=== PATIENT | female | born 1990 | race Caucasian/White ===

== ENCOUNTER 2017-01-19 13:00 | Outpatient (CLI) | payer OTHER ==
[2016-07-09 09:07] VITALS: BMI 46.4
[~2017-01-19 13:00] MED LIST: HYDROCODON-ACE1 EAC7 PO; HYDROCODONE-APA1 TAB PO; KLONOPIN1 MG PO; VALIUM5 MG PO
== END 2017-01-19 23:59 | disposition home or self-care (01) ==
LOC: D.MRI 13:00
DX: S83.271A Complex tear of lateral meniscus, current injury, right knee, initial encounter (principal); X58.XXXA Exposure to other specified factors, initial encounter; Y93.89 Activity, other specified; Y92.89 Other specified places as the place of occurrence of the external cause

== ENCOUNTER 2017-02-16 10:30 | Emergency (ER) | payer OTHER ==
[2016-07-09 09:07] VITALS: BMI 46.4
== END 2017-02-16 12:20 | disposition home or self-care (01) ==
LOC: D.ER 10:30
DX: M25.512 Pain in left shoulder (principal)

== ENCOUNTER 2017-02-20 12:41 | Emergency (ER) | payer OTHER ==
[2016-07-09 09:07] VITALS: BMI 46.4
[2017-02-20 13:40] LABS: BASOPHILS 0.2 % (0-2); EOSINOPHILS 3.4 % (0-7); HEMATOCRIT 45.5 % (36.0-48.0); HEMOGLOBIN 14.9 g/dL (12-16); IMMATURE GRANULOCYTES 0.3 % (0-5); LYMPHOCYTES 24.5 % (15-50); MCH 30.2 pg (26.0-34.0); MCHC 32.7 g/dL (31.0-37.0); MCV 92.1 fL (80.0-100.0); MEAN PLATELET VOLUME 10.2 fL (7.4-10.4); MONOCYTES 5.5 % (2-11); NEUTROPHILS 66.1 % (40-80); PLATELET COUNT 256 10x3/uL (130-400); RBC 4.94 10x6/uL (4.00-5.40); RDW 12.9 % (11.5-14.5); WBC 10.3 10x3/uL (4.8-10.8)
[2017-02-20 13:41] LABS: APPEARANCE HAZY (CLEAR); BACTERIA MODERATE /hpf (NONE SEEN); BILIRUBIN NEGATIVE (NEGATIVE); COLOR YELLOW (YELLOW); GLUCOSE NEGATIVE (NEGATIVE); KETONE NEGATIVE (NEGATIVE); LEUKOCYTE ESTERASE 1+ (NEGATIVE); MUCUS <1+ /lpf (NONE SEEN); NITRITE NEGATIVE (NEGATIVE); PROTEIN NEGATIVE (NEGATIVE); SPECIFIC GRAVITY 1.015 (1.005-1.020); UROBILINOGEN NORMAL (NORMAL); WHITE CELLS - URINE 25-50 /hpf (0-5)
[2017-02-20 14:13] LABS: ALBUMIN 3.9 g/dL (3.4-5.0); ALKALINE PHOSPHATASE 85 U/L (46-116); ALT (SGPT) 29 U/L (10-68); BILIRUBIN - TOTAL 0.53 mg/dL (0.2-1.3); CALC OSMOLALITY 275 mosm/kg (275-300); CALCIUM 9.3 mg/dL (8.5-10.1); CARBON DIOXIDE 26.6 mmol/L (21.0-32.0); CHLORIDE - SERUM 103 mmol/L (98-107); CREATININE - SERUM 0.8 mg/dL (0.6-1.3); GLUCOSE 91 mg/dL (74-106); POTASSIUM - SERUM 3.9 mmol/L (3.5-5.1); PROTEIN - SERUM 8.2 g/dL (6.4-8.2); SODIUM 139 mmol/L (136-145); UREA NITROGEN 8 mg/dL (7-18); eGFR NON AFRICAN AMERICAN 90 mL/min (90-120)
== END 2017-02-20 15:05 | disposition home or self-care (01) ==
LOC: D.ER 12:41
PROVIDERS: Nurse Practitioner Family
DX: N39.0 Urinary tract infection, site not specified (principal); M54.5 Low back pain; F17.200 Nicotine dependence, unspecified, uncomplicated

== ENCOUNTER 2017-10-15 19:27 | Emergency (ER) | payer MEDICAID | END 2017-10-15 22:35 | disposition home or self-care (01) | LOC: D.ER 19:27 | DX: M54.30 Sciatica, unspecified side (principal); S39.012A Strain of muscle, fascia and tendon of lower back, initial encounter; X58.XXXA Exposure to other specified factors, initial encounter; Y93.89 Activity, other specified; Y92.89 Other specified places as the place of occurrence of the external cause; F17.200 Nicotine dependence, unspecified, uncomplicated ==

== ENCOUNTER 2017-10-26 12:29 | Emergency (ER) | payer MEDICAID ==
[2016-07-09 09:07] VITALS: BMI 46.4
== END 2017-10-26 14:18 | disposition home or self-care (01) ==
LOC: D.ER 12:29
DX: M54.16 Radiculopathy, lumbar region (principal); F17.200 Nicotine dependence, unspecified, uncomplicated

== ENCOUNTER 2018-02-16 14:24 | Emergency (ER) | payer MEDICAID ==
[~2018-02-16] VITALS: Ht 167.6 cm; Wt 127.3 kg
[2018-02-16 14:29] VITALS: Ht 167.6 cm; Wt 127.3 kg
[2018-02-16 15:22] LABS: BASOPHILS 0.3 % (0-2); EOSINOPHILS 2.9 % (0-7); HEMATOCRIT 43.3 % (36.0-48.0); HEMOGLOBIN 14.4 g/dL (12-16); IMMATURE GRANULOCYTES 0.2 % (0-5); LYMPHOCYTES 25.3 % (15-50); MCH 30.3 pg (26.0-34.0); MCHC 33.3 g/dL (31.0-37.0); MCV 91.2 fL (80.0-100.0); MEAN PLATELET VOLUME 9.9 fL (7.4-10.4); MONOCYTES 5.8 % (2-11); NEUTROPHILS 65.5 % (40-80); PLATELET COUNT 258 10x3/uL (130-400); RBC 4.75 10x6/uL (4.00-5.40); WBC 10.3 10x3/uL (4.8-10.8)
[2018-02-16 15:33] LABS: HCG URINE NEGATIVE (NEGATIVE)
[2018-02-16 15:39] LABS: APPEARANCE HAZY (CLEAR); BILIRUBIN NEGATIVE (NEGATIVE); COLOR YELLOW (YELLOW); GLUCOSE NEGATIVE (NEGATIVE); KETONE NEGATIVE (NEGATIVE); NITRITE NEGATIVE (NEGATIVE); PROTEIN NEGATIVE (NEGATIVE); UROBILINOGEN NORMAL (NORMAL)
[2018-02-16 15:44] LABS: BACTERIA MANY /hpf (NONE SEEN); EPITHELIAL CELLS 0-5 /hpf (0-5); MUCUS <1+ /lpf (NONE SEEN); RED CELLS - URINE >50 /hpf (0-5); WHITE CELLS - URINE 0-5 /hpf (0-5)
[2018-02-16 15:57] LABS: ALBUMIN 3.4 g/dL (3.4-5.0); ALKALINE PHOSPHATASE 64 U/L (46-116); ALT (SGPT) 43 U/L (10-68); CALC OSMOLALITY 281 mosm/kg (275-300); CALCIUM 9.2 mg/dL (8.5-10.1); CARBON DIOXIDE 29.4 mmol/L (21.0-32.0); CHLORIDE - SERUM 106 mmol/L (98-107); CREATININE - SERUM 0.7 mg/dL (0.6-1.3); GLUCOSE 116 mg/dL (74-106); PROTEIN - SERUM 7.5 g/dL (6.4-8.2); SODIUM 142 mmol/L (136-145); UREA NITROGEN 6 mg/dL (7-18); eGFR NON AFRICAN AMERICAN > 90 mL/min (90-120)
[2018-02-16 16:44] LABS: HCG - QUANTITATIVE (MATERNAL) 0 mIU/mL; LIPASE 136 U/L (73-393)
[2018-02-16] MEDS ORDERED: ZOFRAN ODT4 MG/UDTAB PO (17:35)
[2018-02-16] MEDS ORDERED: MACRODANTIN100 MG PO (17:35)
[2018-02-16 18:03] VITALS: BP 132/80
== END 2018-02-16 18:03 | disposition home or self-care (01) ==
LOC: D.ER 14:24
PROVIDERS: Family Medicine
DX: N39.0 Urinary tract infection, site not specified (principal); R11.2 Nausea with vomiting, unspecified; N93.9 Abnormal uterine and vaginal bleeding, unspecified; F17.200 Nicotine dependence, unspecified, uncomplicated

== ENCOUNTER 2018-03-18 20:10 | Emergency (ER) | payer MEDICAID ==
[~2018-03-18] VITALS: Ht 167.6 cm; Wt 135.5 kg
[~2018-03-18 20:10] MED LIST changes: +MACRODANTIN100 MG PO; +ZOFRAN ODT4 MG/UDTAB PO
[2018-03-18 20:15] VITALS: Ht 167.6 cm; Wt 135.5 kg
[2018-03-18] MEDS ORDERED: ROBAXIN-750750 MG PO (21:24)
[2018-03-18] MEDS ORDERED: VOLTAREN75 MG PO (21:24)
[2018-03-18 22:36] VITALS: BP 127/83
[2018-03-19] MEDS ORDERED: TORADOL10 MG PO (19:13)
== END 2018-03-18 22:34 | disposition home or self-care (01) ==
LOC: D.ER 20:10
DX: G43.909 Migraine, unspecified, not intractable, without status migrainosus (principal); M54.5 Low back pain; F17.200 Nicotine dependence, unspecified, uncomplicated

== ENCOUNTER 2018-03-19 15:23 | Emergency (ER) | payer MEDICAID ==
[~2018-03-19] VITALS: Ht 167.6 cm; Wt 138.2 kg
[~2018-03-19 15:23] MED LIST changes: +ROBAXIN-750750 MG PO; +VOLTAREN75 MG PO
[2018-03-19 15:54] VITALS: Ht 167.6 cm; Wt 138.2 kg
[2018-03-19 17:00] LABS: APPEARANCE CLOUDY (CLEAR); COLOR YELLOW (YELLOW)
[2018-03-19 17:00] LABS: BASOPHILS 0.2 % (0-2); EOSINOPHILS 3.9 % (0-7); HEMATOCRIT 45.5 % (36.0-48.0); HEMOGLOBIN 15.1 g/dL (12-16); IMMATURE GRANULOCYTES 0.4 % (0-5); LYMPHOCYTES 21.8 % (15-50); MCH 30.1 pg (26.0-34.0); MCHC 33.2 g/dL (31.0-37.0); MCV 90.8 fL (80.0-100.0); NEUTROPHILS 65.7 % (40-80); PLATELET COUNT 240 10x3/uL (130-400); RBC 5.01 10x6/uL (4.00-5.40); RDW 13.3 % (11.5-14.5); WBC 13.7 10x3/uL (4.8-10.8)
[2018-03-19 17:01] LABS: BILIRUBIN NEGATIVE (NEGATIVE); GLUCOSE NEGATIVE (NEGATIVE); KETONE NEGATIVE (NEGATIVE); NITRITE NEGATIVE (NEGATIVE); PROTEIN NEGATIVE (NEGATIVE); UROBILINOGEN NORMAL (NORMAL)
[2018-03-19 17:04] LABS: BACTERIA MANY /hpf (NONE SEEN); RED CELLS - URINE 0-5 /hpf (0-5); WHITE CELLS - URINE 0-5 /hpf (0-5)
[2018-03-19 17:49] LABS: ALBUMIN 3.3 g/dL (3.4-5.0); ALKALINE PHOSPHATASE 67 U/L (46-116); ALT (SGPT) 46 U/L (10-68); CALC OSMOLALITY 277 mosm/kg (275-300); CALCIUM 8.4 mg/dL (8.5-10.1); CARBON DIOXIDE 27.5 mmol/L (21.0-32.0); CHLORIDE - SERUM 105 mmol/L (98-107); CREATININE - SERUM 0.6 mg/dL (0.6-1.3); GLUCOSE 116 mg/dL (74-106); POTASSIUM - SERUM 3.4 mmol/L (3.5-5.1); PROTEIN - SERUM 7.2 g/dL (6.4-8.2); SODIUM 140 mmol/L (136-145); UREA NITROGEN 6 mg/dL (7-18); eGFR NON AFRICAN AMERICAN > 90 mL/min (90-120)
[2018-03-19] MEDS ORDERED: TORADOL10 MG PO (19:13)
[2018-03-19 19:17] VITALS: BP 137/85
[2018-03-19 19:50] LABS: HCG SERUM NEGATIVE (NEGATIVE)
[2018-03-23 21:08] LABS: CHLAMYDIA TRACHOMATIS, NAA Negative (Negative)
== END 2018-03-19 20:06 | disposition home or self-care (01) ==
LOC: D.ER 15:23
PROVIDERS: Family Medicine
DX: R10.30 Lower abdominal pain, unspecified (principal); R30.0 Dysuria; R10.2 Pelvic and perineal pain; F17.200 Nicotine dependence, unspecified, uncomplicated

== ENCOUNTER 2018-04-25 20:49 | Emergency (ER) | payer MEDICAID ==
[~2018-04-25] VITALS: Ht 167.6 cm; Wt 140.9 kg
[~2018-04-25 20:49] MED LIST changes: +TORADOL10 MG PO
[2018-04-25 20:54] VITALS: Ht 167.6 cm; Wt 140.9 kg
[2018-04-25] MEDS ORDERED: ZANAFLEX6 MG PO (20:56)
[2018-04-25 21:18] LABS: BASOPHILS 0.2 % (0-2); EOSINOPHILS 3.2 % (0-7); HEMATOCRIT 41.8 % (36.0-48.0); HEMOGLOBIN 13.9 g/dL (12-16); IMMATURE GRANULOCYTES 0.4 % (0-5); LYMPHOCYTES 30.1 % (15-50); MCH 30.2 pg (26.0-34.0); MCHC 33.3 g/dL (31.0-37.0); MCV 90.9 fL (80.0-100.0); MEAN PLATELET VOLUME 9.8 fL (7.4-10.4); MONOCYTES 5.6 % (2-11); NEUTROPHILS 60.5 % (40-80); PLATELET COUNT 287 10x3/uL (130-400); RDW 13.2 % (11.5-14.5)
[2018-04-25 21:30] LABS: ALBUMIN 3.5 g/dL (3.4-5.0); ALKALINE PHOSPHATASE 65 U/L (46-116); ALT (SGPT) 58 U/L (10-68); CALC OSMOLALITY 273 mosm/kg (275-300); CALCIUM 8.4 mg/dL (8.5-10.1); CARBON DIOXIDE 27.4 mmol/L (21.0-32.0); CHLORIDE - SERUM 103 mmol/L (98-107); CREATININE - SERUM 0.8 mg/dL (0.6-1.3); GLUCOSE 104 mg/dL (74-106); POTASSIUM - SERUM 3.7 mmol/L (3.5-5.1); PROTEIN - SERUM 7.7 g/dL (6.4-8.2); SODIUM 138 mmol/L (136-145); UREA NITROGEN 8 mg/dL (7-18); eGFR NON AFRICAN AMERICAN 90 mL/min (90-120)
[2018-04-25 21:33] LABS: APPEARANCE HAZY (CLEAR); COLOR YELLOW (YELLOW); GLUCOSE NEGATIVE (NEGATIVE); KETONE NEGATIVE (NEGATIVE); NITRITE POSITIVE (NEGATIVE); PROTEIN NEGATIVE (NEGATIVE); SPECIFIC GRAVITY 1.015 (1.005-1.020)
[2018-04-25 21:34] LABS: BACTERIA MANY /hpf (NONE SEEN); BILIRUBIN NEGATIVE (NEGATIVE); RED CELLS - URINE 0-5 /hpf (0-5); UROBILINOGEN NORMAL (NORMAL)
[2018-04-25 21:42] LABS: HCG SERUM NEGATIVE (NEGATIVE)
[2018-04-25] MEDS ORDERED: ZOFRAN8 MG PO (21:59)
[2018-04-25] MEDS ORDERED: TORADOL10 MG PO (21:59)
[2018-04-25] MEDS ORDERED: MACROBID100 MG PO (21:59)
[2018-04-25 22:34] VITALS: BP 135/81
== END 2018-04-25 22:36 | disposition home or self-care (01) ==
LOC: D.ER 20:49
PROVIDERS: Family Medicine
DX: R10.9 Unspecified abdominal pain (principal); N39.0 Urinary tract infection, site not specified; F17.200 Nicotine dependence, unspecified, uncomplicated; R11.0 Nausea

== ENCOUNTER → 2018-05-05 10:11 | Outpatient (CLI) | payer MEDICAID ==
[2018-04-25 20:54] VITALS: BMI 50.1
[~2018-05-05 10:11] MED LIST changes: +MACROBID100 MG PO; +ZANAFLEX6 MG PO; +ZOFRAN8 MG PO
== END | disposition home or self-care (01) ==
LOC: D.MRI 10:11
DX: M54.16 Radiculopathy, lumbar region (principal)

== ENCOUNTER 2018-06-21 11:54 | Emergency (ER) | payer MEDICAID ==
[~2018-06-21] VITALS: Ht 167.6 cm; Wt 138.2 kg
[2018-06-21 12:19] VITALS: BP 140/101; Ht 167.6 cm; Wt 138.2 kg
[2018-06-21] MEDS ORDERED: MUPIROCIN22 GM TOPICAL (13:47)
[2018-06-21] MEDS ORDERED: TYLENOL W/CODEI1 TAB PO (13:47)
== END 2018-06-21 14:02 | disposition home or self-care (01) ==
LOC: D.ER 11:54
DX: S61.012A Laceration without foreign body of left thumb without damage to nail, initial encounter (principal); W26.8XXA Contact with other sharp object(s), not elsewhere classified, initial encounter; Y93.89 Activity, other specified; Y92.019 Unspecified place in single-family (private) house as the place of occurrence of the external cause; F17.200 Nicotine dependence, unspecified, uncomplicated

== ENCOUNTER 2018-09-20 20:56 | Emergency (ER) | payer MEDICAID ==
[~2018-09-20] VITALS: Ht 162.6 cm; Wt 118.2 kg
[~2018-09-20 20:56] MED LIST changes: +MUPIROCIN22 GM TOPICAL; +TYLENOL W/CODEI1 TAB PO
[2018-09-20 21:16] VITALS: BP 135/74; Ht 162.6 cm; Wt 118.2 kg
== END 2018-09-20 23:34 | disposition home or self-care (01) ==
LOC: D.ER 20:56
DX: G89.18 Other acute postprocedural pain (principal); M79.602 Pain in left arm; F17.200 Nicotine dependence, unspecified, uncomplicated

== ENCOUNTER 2018-11-13 13:57 | Emergency (ER) | payer MEDICAID ==
[~2018-11-13] VITALS: Ht 162.6 cm; Wt 127.3 kg
[2018-11-13 14:01] VITALS: Ht 162.6 cm; Wt 127.3 kg
[2018-11-13 14:53] LABS: BASOPHILS 0.3 % (0-2); EOSINOPHILS 4.3 % (0-7); HEMATOCRIT 43.9 % (36.0-48.0); HEMOGLOBIN 14.4 g/dL (12-16); IMMATURE GRANULOCYTES 0.3 % (0-5); LYMPHOCYTES 27.5 % (15-50); MCH 29.8 pg (26.0-34.0); MCHC 32.8 g/dL (31.0-37.0); MCV 90.9 fL (80.0-100.0); MEAN PLATELET VOLUME 10.3 fL (7.4-10.4); MONOCYTES 4.8 % (2-11); NEUTROPHILS 62.8 % (40-80); PLATELET COUNT 280 10x3/uL (130-400); RBC 4.83 10x6/uL (4.00-5.40); RDW 13.2 % (11.5-14.5); WBC 10.4 10x3/uL (4.8-10.8)
[2018-11-13 15:08] LABS: ALBUMIN 3.7 g/dL (3.4-5.0); ALKALINE PHOSPHATASE 70 U/L (46-116); ALT (SGPT) 44 U/L (10-68); BILIRUBIN - TOTAL 0.57 mg/dL (0.2-1.3); CALC OSMOLALITY 275 mosm/kg (275-300); CALCIUM 8.7 mg/dL (8.5-10.1); CARBON DIOXIDE 29.1 mmol/L (21.0-32.0); CHLORIDE - SERUM 104 mmol/L (98-107); CREATININE - SERUM 0.7 mg/dL (0.6-1.3); GLUCOSE 91 mg/dL (74-106); POTASSIUM - SERUM 3.7 mmol/L (3.5-5.1); SODIUM 140 mmol/L (136-145); UREA NITROGEN 4 mg/dL (7-18); eGFR NON AFRICAN AMERICAN > 90 mL/min (90-120)
[2018-11-13] MEDS ORDERED: ALBUTEROL SULF8.5 GM INH (16:20)
[2018-11-13] MEDS ORDERED: ZPAK PO (16:20)
[2018-11-13] MEDS ORDERED: TESSALON PERLE100 MG PO (16:20)
[2018-11-13 16:42] VITALS: BP 124/75
== END 2018-11-13 16:43 | disposition home or self-care (01) ==
LOC: D.ER 13:57
PROVIDERS: Emergency Medicine
DX: J40 Bronchitis, not specified as acute or chronic (principal); R09.1 Pleurisy

== ENCOUNTER 2018-12-23 12:16 | Emergency (ER) | payer MEDICAID ==
[~2018-12-23] VITALS: Ht 162.6 cm; Wt 122.7 kg
[~2018-12-23 12:16] MED LIST changes: +ALBUTEROL SULF8.5 GM INH; +TESSALON PERLE100 MG PO; +ZPAK PO
[2018-12-23 12:33] VITALS: Ht 162.6 cm; Wt 122.7 kg
[2018-12-23 15:02] VITALS: BP 149/70
== END 2018-12-23 15:10 | disposition home or self-care (01) ==
LOC: D.ER 12:16
DX: S93.402A Sprain of unspecified ligament of left ankle, initial encounter (principal); X50.1XXA Overexertion from prolonged static or awkward postures, initial encounter; Y93.89 Activity, other specified; Y92.89 Other specified places as the place of occurrence of the external cause